=== PATIENT | male | born 1960 | race Caucasian/White ===

== ENCOUNTER 2020-04-27 00:35 | Outpatient (CLI) | payer OTHER, SELFPAY ==
[2020-04-27 18:38] LABS: SARS-CoV-2 RNA PCR Negative
== END 2020-04-27 00:36 | disposition home or self-care (01) ==
LOC: ANHCOVIDDT 00:35
PROVIDERS: PCP Family Medicine; Visit Provider Internal Medicine Gastroenterology
DX: Z01.812 Encounter for preprocedural laboratory examination (principal); Z20.828 Contact with and (suspected) exposure to other viral communicable diseases
CPT/HCPCS: C9803; U0003

== ENCOUNTER 2020-04-30 00:45 | Day surgery (SDC) | payer OTHER, SELFPAY ==
[2020-04-13 09:45] VITALS: BMI 37.5
[2020-04-30 06:42] VITALS: BP 125/80; PULSE 80; RESP 18; TEMP 36.8; O2SAT 99; BMI 38.2
[2020-04-30] MEDS: LACTATED RINGERS 1,000 ML 150 ML IV CONT (06:51)
--- NOTE | 2020-04-30 06:51 | WPDANESEPPF ---
Anes - Initial Pre Proc Eval Procedure: Operation Date: 04/30/20 08:00 Proposed Procedures p Screening Colonoscopy - Darrick Márquez MD Date/Time: 04/30/20 06:51 Surgeon: Darrick Márquez MD Pre Op Diagnosis: neoplasm screening Patient Data Age: 60 Gender: M Height: 1.91 m Weight: 138.8 kg Last Vital Signs Temp 36.8 C 04/30/20 06:42 Pulse 80 04/30/20 06:42 Resp 18 04/30/20 06:42 BP 125/80 04/30/20 06:42 Pulse Ox 99 04/30/20 06:42 Allergies Allergy/AdvReac Type Severity Reaction Status Date / Time No Known Allergies Allergy Verified 04/30/20 06:38 Home Medications Medication Instructions Recorded Confirmed Type buspirone 15 mg PO TID 05/04/19 04/13/20 History gabapentin 300 mg PO TID 05/04/19 04/13/20 History prazosin 6 mg PO HS 05/04/19 04/13/20 History peg 3350-electrolytes 236 240 ml PO Q10M #4000 ml 03/14/20 Rx gram-22.74 gram-6.74 gram-5.86 gram solution sodium,potassium,mag sulfates 17.5 354 ml PO ONCE #354 ml 03/14/20 Rx gram-3.13 gram-1.6 gram oral soln sodium,potassium,mag sulfates 17.5 See Rx Instructions PO .COMPLEX 04/02/20 Rx gram-3.13 gram-1.6 gram oral soln #354 ml atorvastatin 20 mg PO HS 04/13/20 04/13/20 History fluoxetine 40 mg PO DAILY 04/13/20 04/13/20 History hydroxyzine HCl 50 mg PO TID 04/13/20 04/13/20 History Patient hx anesthesia problems: none Family hx anesthesia problems: none PMFSH Past Medical History Medical History (Updated 03/14/20 @ 11:02 by Lesia Saez) Alcohol use He likes to binge drink Alcoholic peripheral neuropathy Anxiety Sees a psychiatrist at [place] CVA (cerebral vascular accident) 2011 no residual Depression HTN (hypertension) PTSD (post-traumatic stress disorder) Tobacco abuse Surgical History Surgical History (System 07/28/19 @ 14:17 by Geena Rudolph) H/O colonoscopy with polypectomy X2 S/P appendectomy Family History Family History (System 07/28/19 @ 14:17 by Geena Rudolph) Grandparent Hypertension Mother Family history of rheumatoid arthritis Rheumatoid arthritis Father Pacemaker Social History Social History (System 07/28/19 @ 14:17 by Geena Rudolph) Social History: Patient stated that he is attempting to get disability. He is 2 children a son and a daughter. He is not currently working at this time. He worked at [employer] until 2011. He said he does not drink on a daily basis but occasionally does binge drink. He is . He no longer smokes cigarettes but papers every day. He denies any substance abuse. He does not have a power finance attorney and wishes to be a full code. Smoking packs per day: 0.5 Smoking cigarettes per day: 10.0 Years smoked: 35 Smoking pack-years: 17.50 Smoking status: Former smoker Tobacco type: cigarettes and e-cigarettes/vaping Additional smoking assessment comments: CURRENTLY VAPES Alcohol intake: former Alcohol use details: MAY HAVE A DRINK 2 TO 3 TIMES PER YEAR Substance use: never Substance use type: does not use Living arrangements: alone Gender identity (if verbalized by the patient): Male Spiritual care concerns: No Agree to blood products: Yes Anes - Evitsha Final PreProcedure Day of Procedure 04/30/20 06:51 Patient weight: obese Heart: regular rate and rhythm Lungs: clear to auscultation and normal air movement Airway: Mallampati scale class III Neurological: alert and oriented Last oral intake: >/= 8 hours ASA classification: III Emergent: no Anesthetic plan: proceed Anesthesia type and monitoring: general GIVS and standard monitoring Informed Consent: The patient's anesthetic plan and its attendant risks and benefits were discussed with the patient/family/POA. Questions were solicited and answers provided to the satisfaction of the patient/family/POA.
--- NOTE | 2020-04-30 07:59 | PM.HPGS ---
History of Present Illness History of Present Illness Consent: Risks, benefits, and alternatives have been discussed and questions answered. Patient agrees to proceed with procedure. Chief complaint: neoplasm screening Narrative: Simone Lopez IV is a 60 year old male with colon polyps in 2014 Review of Systems Constitutional: Constitutional: Denies headache(s) and Denies weakness Eyes: Eyes: Denies blurry vision ENT: Reports Normal hearing present, Denies headache(s) and Denies neck pain Cardiovascular: Cardiovascular: Denies chest pain and Denies dyspnea Respiratory: Respiratory: Denies dyspnea Gastrointestinal: Gastrointestinal: Reports no additional gastrointestinal complaints Genitourinary: Genitourinary: Denies dysuria Musculoskeletal: Musculoskeletal: Denies neck pain Integumentary/Breasts: Skin/Breast: Denies dry skin Neurologic: Reports Normal hearing present, Denies headache(s) and Denies weakness Psychiatric: Psychiatric: Denies anxiety Endocrine: Endocrine: Denies change in body appearance Hematologic/Lymphatic: Hematologic/Lymphatic: Denies easy bleeding Allergic/Immunologic: Allergic/Immunologic: Denies urticaria [facility] Past Medical History Medical History (Updated 03/14/20 @ 11:02 by Lesia Saez) Alcohol use He likes to binge drink Alcoholic peripheral neuropathy Anxiety Sees a psychiatrist at [place] CVA (cerebral vascular accident) 2011 no residual Depression HTN (hypertension) PTSD (post-traumatic stress disorder) Tobacco abuse Surgical History Surgical History (System 07/28/19 @ 14:17 by Geena Rudolph) H/O colonoscopy with polypectomy X2 S/P appendectomy Family History Family History (System 07/28/19 @ 14:17 by Geena Rudolph) Grandparent Hypertension Mother Family history of rheumatoid arthritis Rheumatoid arthritis Father Pacemaker Social History Social History (System 07/28/19 @ 14:17 by Geena Rudolph) Social History: Patient stated that he is attempting to get disability. He is 2 children a son and a daughter. He is not currently working at this time. He worked at [employer] until 2011. He said he does not drink on a daily basis but occasionally does binge drink. He is . He no longer smokes cigarettes but papers every day. He denies any substance abuse. He does not have a power attorney general and wishes to be a full code. Smoking packs per day: 0.5 Smoking cigarettes per day: 10.0 Years smoked: 35 Smoking pack-years: 17.50 Smoking status: Former smoker Tobacco type: cigarettes and e-cigarettes/vaping Additional smoking assessment comments: CURRENTLY VAPES Alcohol intake: former Alcohol use details: MAY HAVE A DRINK 2 TO 3 TIMES PER YEAR Substance use: never Substance use type: does not use Living arrangements: alone Gender identity (if verbalized by the patient): Male Spiritual care concerns: No Agree to blood products: Yes Meds Home Medications and Allergies Home Medications Medication Instructions Recorded Confirmed Type buspirone 15 mg PO TID 05/04/19 04/13/20 History gabapentin 300 mg PO TID 05/04/19 04/13/20 History prazosin 6 mg PO HS 05/04/19 04/13/20 History peg 3350-electrolytes 236 240 ml PO Q10M #4000 ml 03/14/20 Rx gram-22.74 gram-6.74 gram-5.86 gram solution sodium,potassium,mag sulfates 17.5 354 ml PO ONCE #354 ml 03/14/20 Rx gram-3.13 gram-1.6 gram oral soln sodium,potassium,mag sulfates 17.5 See Rx Instructions PO .COMPLEX 04/02/20 Rx gram-3.13 gram-1.6 gram oral soln #354 ml atorvastatin 20 mg PO HS 04/13/20 04/13/20 History fluoxetine 40 mg PO DAILY 04/13/20 04/13/20 History hydroxyzine HCl 50 mg PO TID 04/13/20 04/13/20 History Allergies Allergy/AdvReac Type Severity Reaction Status Date / Time No Known Allergies Allergy Verified 04/30/20 06:38 Vital Signs Vital Signs - 24 hr 04/30/20 06:42 Temperature 98.3 F Pulse Rate 80 Respirat
[2020-04-30 08:18] VITALS: BP 103/65; PULSE 72; RESP 17; O2SAT 91
[2020-04-30 08:28] VITALS: BP 107/71; PULSE 67; RESP 19; O2SAT 96
[2020-04-30 08:38] VITALS: BP 115/79; PULSE 60; RESP 18; O2SAT 95
== END 2020-04-30 08:55 | disposition home or self-care (01) ==
PROVIDERS: PCP Family Medicine; Visit Provider Internal Medicine Gastroenterology
PROC: 0DJD8ZZ Inspection of Lower Intestinal Tract, Via Natural or Artificial Opening Endoscopic (ICD-10-PCS; CPT 45378; principal; 2020-04-30 08:00)
DX: Z12.11 Encounter for screening for malignant neoplasm of colon (principal); D12.0 Benign neoplasm of cecum; K57.30 Diverticulosis of large intestine without perforation or abscess without bleeding; G62.1 Alcoholic polyneuropathy; I10 Essential (primary) hypertension; F43.10 Post-traumatic stress disorder, unspecified; F41.8 Other specified anxiety disorders; Z86.73 Personal history of transient ischemic attack (TIA), and cerebral infarction without residual deficits; F17.290 Nicotine dependence, other tobacco product, uncomplicated; E66.9 Obesity, unspecified; Z68.38 Body mass index [BMI] 38.0-38.9, adult
CPT/HCPCS: 45385; 88305; J2704; J7120

== ENCOUNTER 2021-02-27 10:38 | Outpatient (CLI) | payer OTHER, SELFPAY ==
--- NOTE | ~2021-02-27 | US_ITS ---
EXAMINATION: US thyroid EXAM DATE: 02/27/2021 11:14 INDICATION: Nontoxic goiter. TECHNIQUE: Multiple grayscale and Doppler images of the thyroid were obtained (by a technologist who performed the scan) and subsequently reviewed. Individual nodules and recommendations may be reporte d in accordance with TI-RADS system as designated by the 2017 ACR White Paper TI-RADS committee. The re is no prior study for comparison. FINDINGS: The right thyroid lobe measures 1.5 x 2.3 x 6.4 cm, the left measuring 1.5 x 2.6 x 5.2 cm. Mildly dif fusely heterogeneous thyroid echogenicity. There are some scattered thyroid nodules. There is a right thyroid lobe superior pole nodule measuring 1.8 x 1.1 x 1.1 cm , mixed cystic and so lid (1 point), hypoechoic (2 points), wider than tall, smooth well defined margin, without echogenic foci, category TR3 for this nodule. Left thyroid lobe nodule measuring 1.3 x 0.9 x 0.9, solid (2 points), hypoechoic (2 points), wider th an tall, smooth well defined margin, without echogenic foci, category TR4 for this nodule. The other nodules are smaller. IMPRESSION: Multinodular goiter; recommend one-year follow-up thyroid ultrasound. Reviewed, dictated and finalized at location A. IMPRESSION: Multinodular goiter; recommend one-year follow-up thyroid ultrasoun d.
== END 2021-02-27 10:39 | disposition home or self-care (01) ==
LOC: ANHIMG 10:38
PROVIDERS: PCP Family Medicine; Visit Provider Physician Assistant
DX: E04.2 Nontoxic multinodular goiter (principal)
CPT/HCPCS: 76536

== ENCOUNTER 2021-08-21 08:33 | Outpatient (CLI) | payer OTHER, SELFPAY ==
--- NOTE | 2021-08-21 | ECHO_ITS ---
Patient Info Name: Simone Lopez Age: 61 years : 1960 Gender: Male Ht: 75 in Wt: 305 lbs BSA: 2.76 m2 HR: 54 bpm BP: 122 / 78 mmHg Heart Rhythm: Sinus Rhythm Technical Quality: Fair Exam Date: 08/21/2021 9:12 AM Exam Location: [facility] Patient Status: Outpatient Admit Date: 08/21/2021 Staff Ordering Physician: RosarioJacquelyn Rn Home Health: Eloisa Ventura RDCS Attending Provider: Rosario, Jacquelyn ZAVALETA Referring Physician: Rosario LYONS; Exam Type: CA echo doppler color flow Study Info Indications - alegria Complete two-dimensional, color flow and Doppler transthoracic echocardiogram is performed. Summary 1. Complete two-dimensional, color flow and Doppler transthoracic echocardiogram is performed. 2. Normal left ventricular size with mild concentric hypertrophy. Normal left ventricular systolic function, EF 60-65%. Normal diastolic function. No segmental wall motion abnormalities. 3. Normal right ventricular size with mild reduction of right ventricular systolic function. 4. Left atrial chamber dimension is mildly enlarged. 5. Right atrial chamber dimension is mildly enlarged. 6. No pulmonary hypertension, estimated pulmonary arterial systolic pressure is 34 mmHg. 7. No significant valve disease. 8. Normal sinus rhythm. Left Ventricle Left ventricular chamber dimension is normal. Left ventricular systolic function is normal, estimated at 60-65%. There is mildly increased left ventricular wall thickness. Left ventricular septal wall motion is normal. The left ventricular diastolic function is normal. Right Ventricle Right ventricular chamber dimension is normal. Normal right ventricular size with mild reduction of right ventricular systolic function. Left Atria Left atrial chamber dimension is mildly enlarged. Right Atria Right atrial chamber dimension is mildly enlarged. Aortic Valve The aortic valve is trileaflet. There is no aortic valve sclerosis. There is no aortic valve stenosis. There is no aortic valve regurgitation. Pulmonic Valve The pulmonic valve is normal. There is no pulmonic valve stenosis. There is no pulmonic regurgitation. Mitral Valve The mitral valve has normal leaflets. There is no mitral valve stenosis. There is trace mitral valve regurgitation. Tricuspid Valve The tricuspid valve leaflets are normal. There is no significant tricuspid valve stenosis. There is trace tricuspid valve regurgitation. No pulmonary hypertension, estimated pulmonary arterial systolic pressure is 34 mmHg. Pericardium/Pleural The pericardium appears normal. There is no pericardial effusion. Inferior Vena Cava Normal inferior vena cava with >50% collapse upon inspiration consistent with Empty right atrial pressure, 10 mmHg. Aorta The aortic root size at the sinus of Valsalva is normal. The prox ascending aorta size is normal. Left Ventricular Outflow Tract Name Value Normal LVOT 2D LVOT Diameter 2.2 cm LVOT Doppler LVOT Peak Gradient 4 mmHg LVOT Mean Gradient 3 mmHg
== END 2021-08-21 08:34 | disposition home or self-care (01) ==
LOC: ANHCARD 08:35
PROVIDERS: PCP Family Medicine; Visit Provider Physician Assistant
DX: Z12.2 Encounter for screening for malignant neoplasm of respiratory organs (principal); R06.09 Other forms of dyspnea
CPT/HCPCS: 93306

== ENCOUNTER 2022-02-28 09:37 | Outpatient (CLI) | payer OTHER, SELFPAY ==
--- NOTE | ~2022-02-28 | CT_ITS ---
EXAMINATION: CT lung screening DATE: 02/28/2022 10:00 INDICATION: HX OF NICOTINE DEPENDENCE TECHNIQUE: Computed tomography (CT) of the chest was performed without intravenous contrast. Addition al 3D reconstructions utilizing coronal maximum intensity projection (MIP) were performed. Automated exposure control and iterative reconstruction technique were employed. The dose-length product was 28 2.66 mGy-cm. COMPARISON: 12/26/2015 FINDINGS: Minimal left apical pleural-parenchymal scarring. Unchanged 3 mm para fissural nodule in the anteroba silar segment of the right lower lobe. Unchanged 3 mm right upper lobe nodule. Unchanged one-2 mm nod ule at the superior segment of the lingula. No new or enlarging pulmonary nodules are no pneumonia, p ulmonary edema or pleural effusion. Heart size is normal. No pericardial effusion. Thoracic aorta is normal in caliber. No pathologically enlarged abdominal or pelvic lymphadenopathy. Old healed anterio r right seventh rib fracture. Mild thoracic spondylosis. IMPRESSION: 1. Lung-RADS category 2: Benign appearance or behavior. Continue annual screening with noncontrast lo w-dose chest CT in 12 months. Reviewed, dictated and finalized at location B. IMPRESSION: 1. Lung-RADS category 2: Benign appearance or behavior. Continue annual screeni ng with noncontrast low-dose chest CT in 12 months.
== END 2022-02-28 09:38 | disposition home or self-care (01) ==
PROVIDERS: PCP Physician Assistant; Visit Provider Physician Assistant
DX: Z12.2 Encounter for screening for malignant neoplasm of respiratory organs (principal); Z87.891 Personal history of nicotine dependence
CPT/HCPCS: 71271

== ENCOUNTER 2022-03-04 11:36 | Outpatient (CLI) | payer OTHER, SELFPAY ==
--- NOTE | ~2022-03-04 | XR_ITS ---
EXAMINATION: XR lumbar spine 2-3V DATE: 03/04/2022 11:52 INDICATION: Low back pain TECHNIQUE: Anteroposterior and lateral views of the lumbar spine, and cone-down lateral view of the l umbosacral junction were obtained. COMPARISON: 03/02/2014 FINDINGS: There are 2 mm of retrolisthesis of L4 on L5. The vertebral body heights are normal. There is mild loss of intervertebral disc space height throughout the lumbar spine. Bilateral pars defects are noted at L5. Moderate size degenerative endplate osteophytes are present at L3-4. Phleboliths are noted in the pelvis. IMPRESSION: 1. Bilateral L5 pars defects and mild lumbar spondylosis without acute findings or significant interv al change. Reviewed, dictated and finalized at location B. L ALIGNMENT MECHANIC IMPRESSION: 1. Bilateral L5 pars defects and mild lumbar spondylosis without acute findings or significant interval change.
== END 2022-03-04 11:37 | disposition home or self-care (01) ==
PROVIDERS: PCP Physician Assistant; Visit Provider Physician Assistant
DX: M54.50 Low back pain, unspecified (principal); M47.896 Other spondylosis, lumbar region
CPT/HCPCS: 72100

== ENCOUNTER 2022-10-09 12:30 | Outpatient (RCR) | payer OTHER, SELFPAY ==
--- NOTE | 2022-09-10 10:37 | PTOPEVAL1 ---
Assessment and note entered by Miguel Welsh, PT Evaluation Information Assessment Status Evaluation Diagnosis low back pain Onset 2 years ago Subjective Information Patient reports having a sore back for 2 plus years with the severity getting worse and the activities causing the pain to be increasing. Reports trouble with getting out of chairs, lifting more than a gallon of milk, going up and down stairs. He does take Advil. Assessment PT Clinical Summary Goran is a 62 year old male coming into the clinic with a diagnosis of low back pain. Patient has tightness in the R lumbar paraspinals along with decreased lumbar rotation and flexion. Tight hamstrings and a weak core. Physical therapy will work on addressing those deficits along with manual and modalities for pain relief. Plan of Care Interventions Electrical Stimulation,Gait Training,Hot Pack/Cold Pack,Manual Therapy,Neuro Re-education,Patient/ Caregiver Education,Therapeutic Activities, Therapeutic Exercise,Ultrasound Other Interventions cupping, taping, IASTM PT Services Indicated Yes Treatment Frequency and 1-2x/wk for 4 weeks Duration These treatments will address the objective and functional deficits as defined above. The patient will be advanced safely and appropriately in order for the patient to progress towards his/her prior level of function. Additional exercises will be introduced and as well as a comprehensive home exercise program upon discharge, if needed, ?to ensure carryover of functional gains achieved in the clinic. This treatment plan has been reviewed and agreement upon by the patient.
--- NOTE | 2022-10-09 13:25 | PTOPDC ---
Assessment and note entered by Miguel Welsh, PT Evaluation Information Assessment Status Discharge Diagnosis low back pain Onset 2 years ago Subjective Information Patient reports no change in his back and still unable to lift more than a gallon of milk without pain. Reports doing exercises and they feel okay for momentary relief besides lumbar trunk rotation which is too much pressure on the back. (told patient to stop doing lumbar trunk rotation.) Patient feels it is time to go back to his doctor and see what the next steps are. Reported Pain Level Pain Score 5: Self Report Assessment PT Clinical Summary Goran is a 62 year old male coming into the clinic with a diagnosis of low back pain. Patient was evaluated on 09/08/22 and attended 7 sessions. Patient did not meet any goals and self-reports no significant improvement in symptoms. Recommend discharge from physical therapy at this time, returning to his primary and talk to her about future steps needed for improvement. Plan of Care PT Services Indicated No
== END 2022-10-09 14:13 | disposition home or self-care (01) ==
LOC: ANHPT 12:30
PROVIDERS: PCP Physician Assistant; Visit Provider Physician Assistant
DX: M54.50 Low back pain, unspecified (principal)
CPT/HCPCS: 97110; 97140; 97161

== ENCOUNTER 2022-10-31 09:33 | Outpatient (CLI) | payer OTHER, SELFPAY ==
--- NOTE | ~2022-10-31 | MR_ITS ---
MRI of the lumbar spine Clinical History: Back pain Technique: Axial T2-weighted images, and sagittal T1-weighted, T2-weighted, and T2 fat-sat images wer e acquired. Findings: No fracture seen. There is minimal grade 1 retrolisthesis of L2 over L3. No suspicious ricarda ow signal abnormality seen. At L1-L2, there is minimal disc bulge and mild facet arthropathy. No spinal canal stenosis or neural foraminal narrowing. At L2-L3, there is mild disc bulge and mild to moderate facet arthropathy. No central canal stenosis. There is mild to moderate right neural foraminal narrowing and mild left neural foraminal narrowing. At L3-L4, there is mild disc bulge and mild to moderate facet arthropathy. No central canal stenosis. There is mild bilateral neural foraminal narrowing. At L4-L5, there is minimal disc bulge and moderate facet arthropathy. No spinal canal stenosis. There is moderate to advanced bilateral neural foraminal narrowing. At L5-S1, there is minimal disc bulge with moderate facet arthropathy. No central canal stenosis. Osmin ateral neural foramina are preserved. Paravertebral soft tissues are unremarkable. Impression: [id number] degenerative spondylosis, as detailed above. Minimal grade 1 retrolisthesis of L2 over L3. Reviewed, dictated and finalized at location . Impression: [id number] degenerative spondylosis, as detailed above. Minimal grade 1 retrolisthesis of L2 over L3.
== END 2022-10-31 09:34 | disposition home or self-care (01) ==
PROVIDERS: PCP Physician Assistant; Visit Provider Physician Assistant
DX: M47.896 Other spondylosis, lumbar region (principal)
CPT/HCPCS: 72148

== ENCOUNTER 2024-04-01 13:51 | Outpatient (CLI) | payer OTHER, SELFPAY ==
--- NOTE | ~2024-04-01 | CT_ITS ---
CT Scan of the Chest without Contrast: Clinical Indication: Lung cancer screening, nicotine dependence Technique: Contiguous sections were acquired throughout the chest without intravenous contrast. Dose reduction technique was used on this scan by utilizing automated exposure control and iterative recon struction technique. The dose-length product (DLP) was 268.19 mGy-cm. COMPARISON: 422 Findings: There is no evidence of any significant mediastinal, hilar or axillary lymphadenopathy. The mediastin al soft tissues appear normal. There is no evidence of pleural or pericardial effusion. The lungs are clear. No pulmonary nodules or infiltrates are noted. Images through the upper abdomen reveal no abnormalities. Impression: Lung RADS 1: Negative. 12 month follow-up screening CT advised. Reviewed, dictated and finalized at location . TH AND WELLNESS COORDINATOR Impression: Lung RADS 1: Negative. 12 month follow-up screening CT advised.
== END 2024-04-01 13:52 | disposition home or self-care (01) ==
PROVIDERS: PCP Physician Assistant; Visit Provider Physician Assistant
DX: Z12.2 Encounter for screening for malignant neoplasm of respiratory organs (principal); Z87.891 Personal history of nicotine dependence
CPT/HCPCS: 71271